=== PATIENT | female | born 1980 | race Caucasian/White ===

== ENCOUNTER 2021-08-24 06:51 | Inpatient (IN) | payer BC, SELFPAY ==
[2021-08-24] VITALS (77 sets, daily range): BP systolic 92–136; BP diastolic 62–94; PULSE 76–115; RESP 16; TEMP 36.4–37; O2SAT 98–100; BMI 33.3
[2021-08-24 07:32] LABS: Basophils Absolute Auto 0.1 K/mm3 (0.0-0.1); Basophils Percent Auto 0.4 % (0.2-1.2); Eosinophils Absolute Auto 0.2 K/mm3 (0-0.3); Eosinophils Percent Auto 1.5 % (0-4.4); Hematocrit 36.3 % (37.0-47.0); Hemoglobin 12.2 g/dL (12.0-15.0); Immature Granulocyte Absolute 0.11 K/mm3 (0.00-0.031); Immature Granulocyte Percent A 0.8 % (0-0.5); Lymphocytes Absolute Auto 3.45 K/mm3 (0.9-3.2); Lymphocytes Percent Auto 25.7 % (18.3-44.2); Mean Corpuscular HGB Conc 33.6 g/dl (32-36); Mean Corpuscular Hemoglobin 31.3 pg (26-34); Mean Corpuscular Volume 93.1 fl (80-100); Mean Platelet Volume 10.7 fl (7.4-10.4); Monocytes Percent Auto 7.2 % (2.6-8.5); Neutrophils Absolute Auto 8.6 K/mm3 (1.3-6.7); Neutrophils Percent Auto 64.4 % (45.5-73.1); Platelet Count Result 245 k/mm3 (150-375); Red Cell Distribution Width 13.8 % (11.5-14.5); White Blood Count 13.4 K/mm3 (4.5-10.0)
--- NOTE | 2021-08-24 07:38 | WPDANESEPP ---
Anes - Eval Pre Procedure Procedure: labor pain management Date/Time: 08/24/21 07:38 Surgeon: Guanaco Preop Diagnosis: pain during labor Pre Op Diagnosis: Induction of Labor Patient Data Age: 41 Gender: F Height: 1.63 m Weight: 88 kg Allergies Allergy/AdvReac Type Severity Reaction Status Date / Time pollen extracts Allergy Mild hives Verified 03/22/21 09:36 Home Medications Medication Instructions Recorded Confirmed Type PNV cmb#95-ferrous fumarate-FA 1 tablet PO DAILY 07/26/21 07/26/21 History [] Laboratory Tests 08/24/21 08/24/21 08/24/21 07:23 07:23 07:23 WBC 13.4 K/mm3 H K/mm3 (4.5-10.0) RBC 3.90 M/mm3 L M/mm3 (4.2-5.4) Hgb 12.2 g/dL g/dL (12.0-15.0) Hct 36.3 % L % (37.0-47.0) MCV 93.1 fl fl (80-100) MCH 31.3 pg pg (26-34) MCHC 33.6 g/dl g/dl (32-36) RDW 13.8 % % (11.5-14.5) Plt Count 245 k/mm3 k/mm3 (150-375) MPV 10.7 fl H fl (7.4-10.4) Immature Gran % (Auto) 0.8 % H % (0-0.5) Neut % (Auto) 64.4 % % (45.5-73.1) Lymph % (Auto) 25.7 % % (18.3-44.2) [place] % (Auto) 7.2 % % (2.6-8.5) Eos % (Auto) 1.5 % % (0-4.4) Baso % (Auto) 0.4 % % (0.2-1.2) Lymph # (Auto) 3.45 K/mm3 H K/mm3 (0.9-3.2) [place] # (Auto) 1.0 K/mm3 H K/mm3 (0.1-0.6) Eos # (Auto) 0.2 K/mm3 K/mm3 (0-0.3) Baso # (Auto) 0.1 K/mm3 K/mm3 (0.0-0.1) Abs Immat Gran (auto) 0.11 K/mm3 H K/mm3 (0.00-0.031) Absolute Neuts (auto) 8.6 K/mm3 H K/mm3 (1.3-6.7) Absolute Nucleated RBC 0.0 K/mm3 K/mm3 (0.0-0.012) Nucleated RBC % 0.0 % % (0.0-0.2) RPR Pending HIV 1&2 Ab/P24 Ag 4thGn Pending : gestational age (edc 08/25/21) HCG: positive Patient hx anesthesia problems: none Family hx anesthesia problems: none Results Review: All pre-operative results and documents have been reviewed as part of the pre-operative evaluation. [facility] Past Medical History Medical History ADD (attention deficit disorder) without hyperactivity Obesity Pain during labor Smoking 1/2 pack a day or less quit 2011 Family History Family History Mother Family history of malignant neoplasm of breast in first degree relative Father Family history of type 2 diabetes mellitus Diabetes mellitus Social History Social History (Updated 03/22/21 @ 09:37 by Rylie Canalse [facility]) Social History: Years smoked: 4 Smoking status: Former smoker Tobacco type: cigarettes Second hand tobacco smoke exposure: No Smoking end date: 12/01/11 Alcohol intake: former Alcohol use details: occasionally Substance use: never Substance use type: does not use Gender identity (if verbalized by the patient): Female Spiritual care concerns: No Exam Day of Procedure 08/24/21 07:38
[2021-08-24] MEDS: LACTATED RINGERS 1,000 ML 125 ML IV CONT ×2 (07:39→08:40)
[2021-08-24] MEDS: OXYTOCIN 30 UNITS/NS 500 ML 30 UNITS/500 ML BAG IV CONT (07:39)
--- NOTE | 2021-08-24 07:46 | WPDOBADMIT ---
Obstetrics - Admit Note Admission Note: record reviewed. No pertinent additions to the history and/or any subsequent changes in the physical findings that are not consistent with the expected course of the were found. Additions to the history and/or subsequent changes in the physical findings follow. None.Here for MIL. Cervix 350/-2 AROM with thick meconium fluid. FHTs reactive
[2021-08-24 08:27] LABS: HIV 1/2 Ab P24 Ag Result Negative (Negative)
--- NOTE | 2021-08-24 11:48 | PM.OBPRVD ---
OB - Delivery Note Procedure Delivery date: 08/24/21 Procedure: events: Labor Induction Intrapartal events: None Induction method: AROM and per pitocin protocol Delivery monitor: external FHT and internal uterine Route of delivery: Laceration Description: Periurethral and Perineal - 2nd Degree Delivery repair: vicryl (3-0) Specimen: No Quantitative Blood Loss (ml): 300 Anesthesia type: Epidural Disposition: floor Baby Date of : 08/24/21 Weeks of gestation at delivery: 39 gender: Female Weight (pounds): 8 Weight (ounces): 88 position: Right Occiput Anterior Placenta delivery description: Spontaneous cord vessel description: 3 Vessels and Nuchal Cord score one minute: 8 score five minutes: 9
--- NOTE | 2021-08-24 11:49 | PM.OBDSVD ---
DS: Admitting Diagnosis Discharge Date 08/26/21 Admitting Diagnosis MIL at 39 wk DS: Discharge Diagnosis Discharge Diagnosis (1) (normal spontaneous vaginal delivery): Code(s): O80 - Encounter for full-term uncomplicated delivery Status: Acute OB - DS: Summary OB Procedures : Ultrasound OB Procedures Intrapartum: Spontaneous Vag Delivery OB Procedures: : None Peripartum Data Infant Delivery Method: Natural Vaginal Laceration Description: Periurethral and Perineal - 2nd Degree complications: none Status at Discharge Functional status at discharge: independent ambulation Overall status at discharge: patient is progressing back to baseline Time Spent with Patient Time attestation: Total time spent providing and/or coordinating discharge services: DS: Data Data Completed and Pending Labs on day of discharge: Labs from last 24 hours 08/24/21 08/24/21 08/24/21 07:23 07:23 07:23 WBC RBC Hgb Hct MCV MCH MCHC RDW Plt Count MPV Immature Gran % (Auto) Neut % (Auto) Lymph % (Auto) [place] % (Auto) Eos % (Auto) Baso % (Auto) Lymph # (Auto) [place] # (Auto) Eos # (Auto) Baso # (Auto) Abs Immat Gran (auto) Absolute Neuts (auto) Absolute Nucleated RBC Nucleated RBC % RPR Pending HIV 1&2 Ab/P24 Ag 4thGn Negative Blood Type A Positive Antibody Screen Negative 08/24/21 07:23 WBC 13.4 H RBC 3.90 L Hgb 12.2 Hct 36.3 L MCV 93.1 MCH 31.3 MCHC 33.6 RDW 13.8 Plt Count 245 MPV 10.7 H Immature Gran % (Auto) 0.8 H Neut % (Auto) 64.4 Lymph % (Auto) 25.7 [place] % (Auto) 7.2 Eos % (Auto) 1.5 Baso % (Auto) 0.4 Lymph # (Auto) 3.45 H [place] # (Auto) 1.0 H Eos # (Auto) 0.2 Baso # (Auto) 0.1 Abs Immat Gran (auto) 0.11 H Absolute Neuts (auto) 8.6 H Absolute Nucleated RBC 0.0 Nucleated RBC % 0.0 RPR HIV 1&2 Ab/P24 Ag 4thGn Blood Type Antibody Screen Discharge Plan Discharge Attending physician on discharge: Ashley Blanc Discharging Clinician: Ashley Blanc Anticipated Discharge Date/Time: 08/26/21 11:50 Patient Disposition: Home, Self-Care Activity: may shower and pelvic rest Diet: regular Patient Instructions: Antibiotic Form Stand Alone Forms: General Discharge Information Follow-up/Referrals: Ashley Blanc MD [Physician] - Discharge Medications: New norethindrone (contraceptive) 0.35 mg tablet 0.35 mg PO DAILY Qty: 84 RF: 3 Continued PNV cmb#95-ferrous fumarate-FA [] 28 mg iron- 800 mcg Tablet 1 tablet PO DAILY RF: 0 Date of admission: 08/24/21 06:51 Primary Care Provider: Brigitte Gray Admitting Provider: Ashley Blanc Attending physician on admission: Ashley Blanc Condition: Stable
[2021-08-24] MEDS: OXYTOCIN 30 UNITS/NS 500 ML 30 UNITS/500 ML BAG 125 UNITS IV CONT (12:06)
[2021-08-24 13:53] LABS: Rapid Plasma Reagin Non-Reactive (NonReactive)
[2021-08-24] MEDS: BENZOCAINE 20% AER SPR (*SP) 56 GM CAN 1 SPRAY TOPICAL (14:14)
[2021-08-24] MEDS: WITCH HAZEL 40 PADS 1 PAD TOPICAL (14:14)
[2021-08-24] MEDS: IBUPROFEN 600 MG TABLET PO ×2 (14:58→21:00)
[2021-08-24] MEDS: ACETAMINOPHEN 325 MG TABLET 650 MG PO ×2 (14:59→21:00)
[2021-08-24] MEDS: LANOLIN (LANSINOH) 7.5 GM CREAM 1 APPLIC TOPICAL (15:02)
--- NOTE | 2021-08-24 15:25 | PC.NURSE ---
Mother called out for assist with feeding, mother reports infant eagerly fed for first two feedings. Mother reports latch issues with first child and low milk supply. Reviewed infant feeding cues, frequencies, duration of feedings, feeding elimination flow sheet, and signs of adequate intake. Demonstrated stimulation techniques to wake for feeding. Assisted with to breast. Reviewed positioning/alignment in cross cradle, holding breast in ?U? hold and guided asymmetrical latch on. Reviewed rational for each. able to latch correctly within a few attempts. nursed eagerly with steady draws and occasional swallowing noted, some pausing noted. Reviewed signs of a correct latch, effective nursing and suck swallow ratio. Suggested mother stimulate while feeding to increase stimulate, increase intake and to assist with maintaining deep latch. Infant would slip to shallow latch causing tenderness. Demonstrated how to adjust latch more deeply while feeding if needed. Mother reports she can feel the difference in latch with no/less tenderness. Suggested mother hold breast during entire feeding to assist with maintaining deep latch. Nipple care reviewed of lanolin after feedings, warm compresses as needed. Instructed mother to call out for RN assistance if she is unable to latch infant for feeding or she has discomfort with nursing. Instructed feeding should be initiated three hours from start of last feeding or if feeding cues are noted before. Mother voiced understanding of information shared.
--- NOTE | 2021-08-24 19:34 | PC.NURSE ---
1425 Pt admitted to room 284 per wheelchair from labor and delivery after vaginal delivery today at [address] Blanc. Mother is a and is choosing to breast feed infant. /FOB present. Couple oriented to room, staffing and procedures. Admission folder reviewed. Pt's VSS and assessment WNL.
[2021-08-25 00:15] VITALS: BP 116/80; PULSE 75; RESP 18; TEMP 36.9; O2SAT 99
[2021-08-25] MEDS: ACETAMINOPHEN 325 MG TABLET 650 MG PO ×4 (03:18→20:44)
[2021-08-25] MEDS: IBUPROFEN 600 MG TABLET PO ×4 (03:19→20:44)
[2021-08-25 03:55] VITALS: BP 106/74; PULSE 73; RESP 18; TEMP 36.5; O2SAT 98
[2021-08-25 05:23] LABS: Hematocrit 31.7 % (37.0-47.0); Hemoglobin 10.7 g/dL (12.0-15.0)
[2021-08-25 09:00] VITALS: PULSE 73; RESP 18; O2SAT 98
[2021-08-25] MEDS: DOCUSATE SODIUM 100 MG CAPSULE PO ×2 (09:18→15:00)
[2021-08-25] MEDS: MULTIVIT/MIN/PREN/FOL AC/IRON TABLET 1 TAB PO (09:18)
--- NOTE | 2021-08-25 11:10 | WPDANLDPN2 ---
Anes-Prog Note L&D Date/Time: 08/25/21 11:10 Comfortable throughout: labor and delivery Neuraxial method: epidural Epidural/Spinal procedure site: clean & non-tender Neuro status: Neuro function grossly intact. Cardiovascular status: normal Respiratory status: normal Airway patency: baseline Mental status: baseline Post-Op hydration status: normal Vital Signs: Last Vital Signs Temp 36.5 C 08/25/21 03:55 Pulse 73 08/25/21 03:55 Resp 18 08/25/21 03:55 BP 106/74 08/25/21 03:55 Pulse Ox 98 08/25/21 03:55 Pain score (VAS): 110 Post-procedural complaints: none Patient feedback: Patient satisfied with anesthetic care.
--- NOTE | 2021-08-25 11:17 | PM.OBPNVD ---
OB - PN: Subj Subjective Date/time seen: 08/25/21 11:17 Patient comments: no complaints and pain well controlled baby status: doing well and nursing well OB - PN: Obj Data Labs CBC & Chem 7: 08/25/21 03:30 Labs: Laboratory Results - last 24 hr 08/24/21 08/25/21 07:23 03:30 Hgb 10.7 L Hct 31.7 L RPR Non-reactive OB - PN A/P Plan day: 1 Plan: routine care Time Spent With Patient Time: Total time spent is greater than 50% in coordination of care (as documented) at patient's floor/unit and/or counseling patient: Exam : Bimanual exam- vagina & uterus: other (Uterus firm, nt @U)
[2021-08-25 18:25] VITALS: BP 118/78; PULSE 82; RESP 18; TEMP 36.6; O2SAT 99
--- NOTE | 2021-08-26 00:38 | PC.NURSE ---
08/25/2021 at 1999 Patient viewed the discharge video Mother & Baby Care, The First Two Weeks . Patient was given the opportunity and encouraged to ask questions. Patient verbalized understanding of information shared and has been given the mother/baby guide for home reference.
[2021-08-26] MEDS: ACETAMINOPHEN 325 MG TABLET 650 MG PO (04:40)
[2021-08-26] MEDS: IBUPROFEN 600 MG TABLET PO (04:40)
[2021-08-26 08:30] VITALS: BP 127/88; PULSE 85; RESP 14; TEMP 36.8; O2SAT 100; O2SAT 99
--- NOTE | 2021-08-26 09:33 | PM.OBPNVD ---
OB - PN: Subj Subjective Date/time seen: 08/26/21 09:33 Patient comments: no complaints and pain well controlled baby status: doing well OB - PN: Obj Data Labs CBC & Chem 7: 08/25/21 03:30 OB - PN A/P Plan day: 2 Plan: routine care, discharge home, follow up 6 weeks and other (micronor for bc) Time Spent With Patient Time: Total time spent is greater than 50% in coordination of care (as documented) at patient's floor/unit and/or counseling patient: Exam : Bimanual exam- vagina & uterus: other (Uterus firm, nt @U)
[2021-08-27 11:51] VITALS: BP 126/89; PULSE 72; RESP 16; TEMP 36.9; O2SAT 99
== END 2021-08-26 11:45 | disposition home or self-care (01) | DRG 807 ==
LOC: ANHLDR 11:51 → ANHOB2 14:33
PROVIDERS: Admitting Provider Obstetrics & Gynecology Gynecology; PCP Family Medicine; Visit Provider Obstetrics & Gynecology Gynecology
DX: O77.0 Labor and delivery complicated by meconium in amniotic fluid (principal); Z37.0 Single live birth; O69.81X0 Labor and delivery complicated by cord around neck, without compression, not applicable or unspecified; O70.1 Second degree perineal laceration during delivery; Z3A.39 39 weeks gestation of pregnancy; Z87.891 Personal history of nicotine dependence
CPT/HCPCS: 36415; 85014; 85018; 85025; 86592; 86703; 86850; 86900; 86901; A9270; G0432; J2590; J2795; J7120

== ENCOUNTER → 2023-01-15 15:08 | Outpatient (CLI) | payer BC, SELFPAY ==
--- NOTE | ~2023-01-15 | MM_ITS ---
EXAMINATION: MM screening john BI w irasema HISTORY: Screening mammogram TECHNIQUE: Craniocaudal and mediolateral oblique 3-D tomosynthesis images were obtained and synthetic 2-D images were generated. CAD analysis was submitted and interpreted. COMPARISON: No prior mammogram is available for comparison at this institution. BREAST PARENCHYMAL COMPOSITION: There are scattered areas of fibroglandular density. FINDINGS: An approximately 6 mm anterior circumscribed lower outer quadrant left breast opacity. Diag nostic left mammogram and left breast ultrasound examination are recommended. There is asymmetry in the upper outer right breast. Diagnostic right mammogram is recommended, with u ltrasound if required. IMPRESSION: 1. Bilateral mammographic asymmetries 2. Bilateral diagnostic mammography and ultrasound are recommended BI-RADS Category 0: Incomplete: Needs additional imaging evaluation. Reviewed, dictated and finalized at location A. 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
== END ==
PROVIDERS: PCP Obstetrics & Gynecology Gynecology; Visit Provider Obstetrics & Gynecology Gynecology
DX: Z12.31 Encounter for screening mammogram for malignant neoplasm of breast (principal); R92.8 Other abnormal and inconclusive findings on diagnostic imaging of breast
CPT/HCPCS: 77063; 77067

== ENCOUNTER → 2023-02-07 08:17 | Outpatient (CLI) | payer BC, SELFPAY ==
--- NOTE | ~2023-02-07 | MMUS_ITS ---
EXAMINATION: MM diagnostic john BI w irasema, US breast BI limited HISTORY: Bilateral breast asymmetries on screening mammogram TECHNIQUE: Additional 3-D tomosynthesis images of the breasts were performed and synthetic 2-D images were generated. CAD analysis was submitted and interpreted. High resolution limited bilateral breast ultrasound was performed. COMPARISON: 01/15/2023 FINDINGS: MAMMOGRAPHIC FINDINGS: The right breast asymmetry described disperses with spot compression. There is a questionable 7 mm ob scured low density mass at the 5:00 location 3 cm from the nipple in the anterior third of the lower outer left breast. ULTRASOUND: There is no evidence of focal abnormal solid or cystic mass in the vicinity of the mammographic findi ngs in question. IMPRESSION: 1. Probably benign left breast mass. 2. Recommend 6 month follow-up left diagnostic mammogram and possible ultrasound. BI-RADS category 3, probably benign findings. Reviewed, dictated and finalized at location A. 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 Probably benign left breast mass. 2. Recommend 6 month follow-up left diagnostic mammogram and possible ultrasoun d. BI-RADS category 3, probably benign findings.
== END ==
PROVIDERS: PCP Family Medicine; Visit Provider Obstetrics & Gynecology Gynecology
DX: R92.8 Other abnormal and inconclusive findings on diagnostic imaging of breast (principal)
CPT/HCPCS: 76642; 77062; 77066; G0279

== ENCOUNTER → 2023-08-05 08:24 | Outpatient (CLI) | payer BC, SELFPAY ==
--- NOTE | ~2023-08-05 | MM_ITS ---
EXAMINATION: MM diagnostic john LT w irasema HISTORY: Six-month follow-up of questionable 7 mm mammographic obscured low density mass at 5:00 3 cm from nipple in anterior third, or outer quadrant, reported on 01/15/2023 screening mammogram, without correlate on 02/07/2023 diagnostic mammogram or left breast ultrasound examination TECHNIQUE: Full field and spot 3-D tomosynthesis images of the left breast were performed and synthet ic 2-D images were generated. CAD analysis was submitted and interpreted. COMPARISON: 02/07/2023 diagnostic left mammogram and limited left breast ultrasound 01/15/2023 bilateral screening mammogram BREAST PARENCHYMAL COMPOSITION: There are scattered areas of fibroglandular density. FINDINGS: No suspicious mass or architectural distortion, malignant calcification, skin thickening or retraction or significant new or developing density is detected. IMPRESSION: 1. No mammographic evidence of malignancy 2. Routine annual mammographic screening is recommended BI-RADS Category 1: Negative Reviewed, dictated and finalized at location A.
== END ==
PROVIDERS: PCP Obstetrics & Gynecology Gynecology; Visit Provider Physician Assistant
DX: R92.8 Other abnormal and inconclusive findings on diagnostic imaging of breast (principal)
CPT/HCPCS: 77061; 77065; G0279

== ENCOUNTER 2024-07-07 13:49 | Outpatient (CLI) | payer BC, SELFPAY ==
--- NOTE | ~2024-07-07 | MM_ITS ---
EXAMINATION: MM screening john BI w irasema HISTORY: Screening TECHNIQUE: Craniocaudal and mediolateral oblique 3-D tomosynthesis images were obtained and synthetic 2-D images were generated. CAD analysis was submitted and interpreted. COMPARISON: Comparison to multiple prior studies sequentially, with oldest reviewed study dated 01/15. BREAST PARENCHYMAL COMPOSITION: Not dense: There are scattered areas of fibroglandular density. FINDINGS: There is no evidence of suspicious mass, calcification, or architectural distortion to sugg est malignancy in either breast. There has been no suspicious interval change. IMPRESSION: 1. No mammographic evidence of malignancy. 2. Recommend routine screening mammography in one year. BI-RADS Category 1: Negative Reviewed, dictated and finalized at location B.
== END 2024-07-07 13:50 ==
LOC: MICIMG 13:50
PROVIDERS: PCP Family Medicine; Visit Provider Nurse Practitioner
DX: Z12.31 Encounter for screening mammogram for malignant neoplasm of breast (principal)
CPT/HCPCS: 77063; 77067

== ENCOUNTER 2025-04-02 10:48 | Outpatient (CLI) | payer BC, SELFPAY ==
--- NOTE | ~2025-04-02 | XR_ITS ---
XR hip LT min 2V 04/02/2025 11:05 Indication: Left hip pain Procedure: 2 views left hip Comparison: No prior studies for comparison. Findings: There is anatomic alignment. No fracture, subluxation or dislocation. No significant joint space narrowing. No foreign bodies. Surrounding osseous structures are unremarkable. There are pelvic phleboliths. Impression: 1: No significant bone or joint abnormality. Reviewed, dictated and finalized at location A. Impression: 1: No significant bone or joint abnormality.
== END 2025-04-02 10:49 | disposition home or self-care (01) ==
LOC: MICIMG 10:49
PROVIDERS: PCP Family Medicine; Visit Provider Physician Assistant Medical
DX: M25.552 Pain in left hip (principal)
CPT/HCPCS: 73502

== ENCOUNTER 2025-09-28 10:41 | Outpatient (CLI) | payer BC, SELFPAY ==
--- NOTE | ~2025-09-28 | MM_ITS ---
EXAMINATION: MM screening [facility] BI w irasema HISTORY: Screening TECHNIQUE: Craniocaudal and mediolateral oblique 3-D tomosynthesis images were obtained and synthetic 2-D images were generated. CAD analysis was submitted and interpreted. COMPARISON: Comparison to multiple prior studies sequentially, with oldest reviewed study dated 01/15/2023. BREAST PARENCHYMAL COMPOSITION: Not dense: There are scattered areas of fibroglandular density. FINDINGS: There is no evidence of suspicious mass, calcification, or architectural distortion to suggest malignancy in either breast. There has been no suspicious interval change. IMPRESSION: 1. No mammographic evidence of malignancy. 2. Recommend routine screening mammography in one year. BI-RADS Category 1: Negative Reviewed, dictated and finalized at location B.
--- OUTSIDE RECORDS SUMMARY | 2025-09-28 12:11 | XMS_ITS | Clinical Summary ---
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 Name Role Phone Unavailable Primary Care Provider Unavailabl e Social History Tobacco Use Types Packs/Day Years Used Date Smoking Tobacco: Never Assessed Comments Unknown Sex and Gender Information Value Date Recorded Sex Assigned at Not on file Legal Sex Female 4:22 PM CDT Gender Identity Not on file Sexual Orientation Not on file Plan of Treatment Health Maintenance Due Date Last Done Comments DTAP/TDAP/TD VACCINES (1 - Tdap) 2001 HEPATITIS B VACCINES (1 of 3 - 19+ 3-dose series) 06/01 HPV/Cotest (21-29) 2003 HPV VACCINES (1 - 3-dose SCDM series) 2009 CERVICAL CANCER SCREENING 2012 HPV/Cotest (30-65) 2012 PAP SMEAR 2012 BREAST CANCER SCREENING 2022 INFLUENZA VACCINE (#1) 2025 Insurance BS [employer]
== END 2025-09-28 10:42 | disposition home or self-care (01) ==
LOC: ANHFOHIMG 10:44
PROVIDERS: PCP Family Medicine; Visit Provider Obstetrics & Gynecology Gynecology
DX: Z12.31 Encounter for screening mammogram for malignant neoplasm of breast (principal)
CPT/HCPCS: 77063; 77067